=== PATIENT | female | born 1930 | race Caucasian/White ===

== ENCOUNTER 2017-06-01 09:21 | Emergency (ER) | payer MEDICARE ==
[2017-06-01] MEDS ORDERED: NS 0.9% 1000 ML* 1,000 ML IV ONE (09:26)
--- NOTE | 2017-06-01 09:47 | RAD ---
INDICATION: Change in neuro status. Code lindquist. COMPARISON: None TECHNIQUE: Noncontrast axial source images were acquired from the skull base to the vertex. FINDINGS: Ventricles/sulci: There is mild age-related cortical atrophy with compensatory dilatation of the CSF spaces. Brain parenchyma: There is periventricular and subcortical white matter change compatible with chronic ischemia. Intracranial hemorrhage:None. Extra-axial spaces: There are no abnormal extra axial fluid collections or evidence of extra-axial mass. Calvarium: There is no calvarial fracture or other calvarial abnormality. Scalp: There is no evidence of scalp or extracalvarial soft tissue abnormality. Paranasal sinuses/mastoid: The paranasal sinuses and mastoid air cells are clear. Other: None. IMPRESSION: CORTICAL ATROPHY WITH CHRONIC MICROVASCULAR ISCHEMIC CHANGES. POSSIBLE DENSE RIGHT MCA SIGN. NO EVIDENCE OF INTRACRANIAL HEMORRHAGE. Findings called to ED at 0940 hours
[2017-06-01] MEDS ORDERED: Aspirin SUPP* 300 MG PR ONE (09:56)
[2017-06-01 10:02] LABS: Hematocrit 41 % (35-47); Hemoglobin 13.5 g/dl (12.0-16.0); Mean Corpuscular HGB Conc 33 g/dl (31-36); Mean Corpuscular Hemoglobin 29 pg (27-31); Mean Corpuscular Volume 87 fL (80-97); Mean Platelet Volume 9 um3 (7.4-10.4); Red Blood Count 4.73 10^6/ul (4.0-5.4); Red Cell Distribution Width 14 % (10.5-15); White Blood Count 8.8 10^3/ul (3.5-10.8)
[2017-06-01 10:15] LABS: Albumin 3.9 g/dL (3.2-5.2); BUN/Creatinine Ratio 16.7 (8-20); Calcium 9.3 mg/dL (8.6-10.3); EGFR African American 76.5 (>60); EGFR Non-African American 59.5 (>60); Globulin 3.1 g/dL (2-4); HDL Cholesterol 52.6 mg/dL; Potassium 3.8 mmol/L (3.5-5.0); Total Bilirubin 0.8 mg/dL (0.2-1.0)
[2017-06-01 10:16] LABS: Troponin I 0.03 ng/mL (<0.04)
[2017-06-01] MEDS ORDERED: Iodixanol* (CONTRAST) 320 MG/ML 100 ML SDV IV ONE (10:17)
--- NOTE | 2017-06-01 10:18 | RAD ---
Indication: Neurologic changes, coronal lindquist. Single frontal view of the chest performed at 0956 hours was reviewed. Comparison is made with previous exam dated 12/28/2004 and 01/06/2005, August 08, 2006. Cardiomegaly is noted. Tortuous aorta is noted. Left lung field is clear. The right lung field is obscured due to enlarged heart. IMPRESSION: LIMITED CHEST X-RAY. LEFT LUNG FIELD IS CLEAR. RIGHT LUNG FIELD IS NOT WELL EVALUATED. THE STUDY IS EXTREMELY ROTATED TO THE RIGHT
[2017-06-01] MEDS ORDERED: Ondansetron INJ* 2 MG/ML VIAL IV ONE (10:22)
--- NOTE | 2017-06-01 11:15 | RAD ---
INDICATION: Dense left hemiparesis. COMPARISON: Comparison is made with a prior CT of the brain of the same date. TECHNIQUE: A CT angiogram of the head and neck was performed following intravenous injection of 80 ml of Visipaque 320 nonionic contrast. Contiguous axial sections were obtained from the thoracic inlet through the skull vertex. Images were reconstructed in the coronal and sagittal planes and in a 3-D volume rendered format. The distal cervical internal carotid artery diameter is used as the denominator for stenosis measurement. FINDINGS: RIGHT CAROTID: The right common carotid artery appears patent. There appears to be complete occlusion of the internal carotid artery at the carotid bifurcation. The remaining extracranial internal carotid artery as well as the intracranial portion of the internal carotid artery appears occluded with the exception of faint contrast within the cavernous and supraclinoid portion of the internal carotid artery which likely represents cross flow across the [place] of [place]. LEFT CAROTID: The left common carotid artery appears widely patent. There is mild to moderate soft and calcific plaque present at the carotid bifurcation and proximal internal carotid artery giving rise to a mild less than 50% stenosis. The remaining internal carotid artery appears widely patent. VERTEBRALS: The vertebral arteries appear patent. CTA BRAIN: The anterior and middle cerebral arteries appear patent bilaterally. There is mild asymmetry with slightly decreased flow present on the right side. The vertebral and basilar arteries appear patent. There is a small right posterior cerebral artery arising from the basilar artery. The majority of the flow to the right posterior cerebral artery appears to arise from the posterior communicating artery which is decreased due to the patient's carotid artery occlusion. No aneurysm or vascular malformation is seen. NECK: No significant enlarged lymph nodes are seen within the neck. The thyroid, parotid and submandibular glands appear to be within normal limits. The lung apices appear clear. The sinuses are clear. The results of this exam were discussed with the referring clinician. IMPRESSION: THERE IS OCCLUSION OF THE RIGHT INTERNAL CAROTID ARTERY BEGINNING AT THE CAROTID BIFURCATION AND EXTENDING THROUGH THE MAJORITY OF THE INTRACRANIAL PORTION OF THE INTERNAL CAROTID ARTERY DESCRIBED. THERE IS DECREASED FLOW WITHIN THE RIGHT ANTERIOR AND MIDDLE CEREBRAL ARTERIES RELATIVE TO THE LEFT SIDE. IN ADDITION THE MAJORITY OF THE FLOW TO THE RIGHT POSTERIOR CEREBRAL ARTERY APPEARS TO ARISE FROM THE POSTERIOR COMMUNICATING ARTERY AND THERE IS DECREASED FLOW WITHIN THE RIGHT POSTERIOR CEREBRAL ARTERY. CPT II Codes: 3100F
[2017-06-01 11:52] LABS: Urine Bilirubin Negative (Negative); Urine Glucose Negative (Negative); Urine Nitrite Negative (Negative)
--- NOTE | 2017-06-01 11:54 | ED ---
Arielle Turner Alfonso, scribed for Juli Rothman MD on 06/01/17 at 0928 . Neurological HPI - HPI Summary HPI Summary: Josie hayes called at 0923. This patient is an 86 year old F BIBA to [facility] with a chief complaint of left- sided weakness noticed at waking up at approximately 0530. This morning she woke up and fell reaching for a tissue. Pt was unable to describe if she had weakness or facial droop when she awoke at 05:30am. She had a phone conversation at 0700 with a family member where she seemed normal. She made breakfast and stove top coffee this morning. Pt was able to walk and fell striking her head. She went back to bed and when she awoke she had worsening weakness. Last known well time is unknown. Symptoms aggravated by nothing, Symptoms alleviated by nothing. EMS reports right-sided gaze. Patient reports frontal headache. She denies PMHx of CVA. PMHx includes HTN, A-Fib, and colon cancer. - History of Current Complaint Stated Complaint: POSS STROKE Hx Obtained From: Patient, Family/Service Center Appraiser, EMS Onset/Duration: Sudden Onset, Started hours ago - Unknown LKW, Still Present Timing: Constant Onset Severity: Severe Current Severity: Severe Neurological Deficit Location: LUE, LLE Headache Location: Diffuse (Right), Diffuse (Left) Pain Intensity: 1 Pain Scale Used: 0-10 Numeric Character: Unable To Describe Aggravating: Nothing Alleviating: Nothing Associated Signs and Symptoms: Positive: Headache, Weakness TPA Considered: Yes - Pt outside window, and no LKW Related Hx: ASA - Allergy/Home Medications Allergies/Adverse Reactions: Allergies Allergy/AdvReac Type Severity Reaction Status Date / Time Amoxicillin Allergy Unknown Unknown Verified 02/15/13 13:59 Reaction Details Caffeine Allergy Unknown Unknown Verified 02/15/13 13:59 Reaction Details Procaine [From Novocain] Allergy Unknown Unknown Verified 02/15/13 13:58 Reaction Details Sulfa Antibiotics Allergy Unknown Unknown Verified 02/15/13 13:57 Reaction Details Home Medications: Home Medications Albuterol inh POWDER (NF) [Proair Respiclick] 2 puff INH Q6HR PRN 06/01/17 [ History Confirmed 06/01/17] Aspirin EC Low Dose* [Ecotrin EC Low Dose 81 MG*] 81 mg PO DAILY 06/01/17 [ History Confirmed 06/01/17] Atenolol TAB* [Tenormin TAB* 50 MG] 50 mg PO DAILY 06/01/17 [History Confirmed 06/01/17] Levothyroxine TAB* [Synthroid TAB*] 112 mcg PO DAILY 06/01/17 [History Confirmed 06/01/17] LoraTADine TAB(NF) [Claritin 10 MG TAB(NF)] 10 mg PO DAILY PRN 06/01/17 [ History Confirmed 06/01/17] Triamterene/HCTZ 37.5-25 MG* [Dyazide CAP*] 1 cap PO DAILY 06/01/17 [History Confirmed 06/01/17] PMH/Surg Hx/FS Hx/Imm Hx Endocrine/Hematology History: Reports: Hx Thyroid Disease Cardiovascular History: Reports: Hx Atrial Fibrillation, Hx Hypertension Neurological History: Denies: Hx CVA - Cancer History Cancer Type, Location and Year: colon cancer with surgery and chemo 2004 - Surgical History Surgery Procedure, Year, and Place: hernia, colon Infectious Disease History: Denies: Hx Clostridium Difficile, Hx Hepatitis, Hx Human Immunodeficiency Virus (HIV), Hx of Known/Suspected MRSA, Hx Shingles, Hx Tuberculosis, Hx Known/ Suspected VRE, Hx Known/Suspected VRSA, History Other Infectious Disease - Family History Known Family History: Positive: Hypertension - Social History Lives: With Family Alcohol Use: None Substance Use Type: Reports: None Hx Tobacco Use: No Smoking Status (MU): Never Smoked Tobacco Review of Systems Constitutional: Negative Positive: Other - right-sided gaze ENT: Negative Cardiovascular: Negative Respiratory: Negative Gastrointestinal: Negative Musculoskeletal: Negative Positive: Headache, Weakness All Other Systems Reviewed And Are Negative: Yes Physical Exam Triage Information Reviewed: Yes Vital Signs On Initial Exam: Initial Vitals Pulse Pulse Ox 70 92 06/01/17 09:37 06/01/17 09:37 Vital Signs Reviewed: Yes Appearance: Positive: No Pain Distress, Ill-Appearing, Obese Skin: Positive: Warm, Skin Color Reflects Adequate Perfusion Head/Face: Positive: Other - bruising left forehead, left facial droop Eyes: Positive: Conjunctiva Clear, Other: - Right deviation gaze ENT: Positive: Normal ENT inspection, Hearing grossly normal. Negative: Muffled /hoarse voice Neck: Positive: Supple, Nontender Respiratory/Lung Sounds: Positive: Clear to Auscultation, Breath Sounds Present , Other - No respiratory distress Cardiovascular: Positive: Pulses are Symmetrical in both Upper and Lower Extremities, IRR, Other - brisk capillary refill. Negative: Murmur Abdomen Description: Positive: Nontender, No Organomegaly, Soft. Negative: Distended, Guarding, McBurney's Point Tenderness, Peritoneal Signs, Pulsatile Mass Bowel Sounds: Positive: Present Musculoskeletal: Positive: Abnormal @ - LUE, LLE Neurological: Positive: Facial Droop - left, Other - See NIH stroke scale. Psychiatric: Positive: Normal Diagnostics - Vital Signs Vital Signs Temp Pulse Resp BP Pulse Ox 06/01/17 10:00 69 15 163/123 95 06/01/17 09:48 97.9 F 70 20 186/99 95 06/01/17 09:46 98.3 F 74 20 186/99 96 06/01/17 09:42 74 14 186/99 93 06/01/17 09:37 70 92 - Laboratory Lab Results: Lab Results 06/01/17 06/01/17 06/01/17 Range/Units 09:39 09:39 09:39 WBC 8.8 (3.5-10.8) 10^3/ul RBC 4.73 (4.0-5.4) 10^6/ul Hgb 13.5 (12.0-16.0) g/dl Hct 41 (35-47) % MCV 87 (80-97) fL MCH 29 (27-31) pg MCHC 33 (31-36) g/dl RDW 14 (10.5-15) % Plt Count 201 (150-450) 10^3/ul MPV 9 (7.4-10.4) um3 Neut % (Auto) 70.2 (38-83) % Lymph % (Auto) 19.2 L (25-47) % [place] % (Auto) 9.4 H (1-9) % Eos % (Auto) 0.8 (0-6) % Baso % (Auto) 0.4 (0-2) % Absolute Neuts (auto) 6.2 (1.5-7.7) 10^3/ul Absolute Lymphs (auto) 1.7 (1.0-4.8) 10^3/ul Absolute Monos (auto) 0.8 (0-0.8) 10^3/ul Absolute Eos (auto) 0.1 (0-0.6) 10^3/ul Absolute Basos (auto) 0 (0-0.2) 10^3/ul Absolute Nucleated RBC 0.01 10^3/ul Nucleated RBC % 0.1 INR (Anticoag Therapy) 0.94 (0.89-1.11) APTT 30.7 (26.0-36.3) seconds Sodium 136 (133-145) mmol/L Potassium 3.8 (3.5-5.0) mmol/L Chloride 104 (101-111) mmol/L Carbon Dioxide 23 (22-32) mmol/L Anion Gap 9 (2-11) mmol/L BUN 15 (6-24) mg/dL Creatinine 0.90 (0.51-0.95) mg/dL Est GFR ( Amer) 76.5 (>60) Est GFR (Non-Af Amer) 59.5 (>60) BUN/Creatinine Ratio 16.7 (8-20) Glucose 138 H (70-100) mg/dL POC Glucose (mg/dL) (70-100) mg/dL Lactic Acid (0.5-2.0) mmol/L Calcium 9.3 (8.6-10.3) mg/dL Total Bilirubin 0.80 (0.2-1.0) mg/dL AST 21 (13-39) U/L ALT 12 (7-52) U/L Alkaline Phosphatase 76 (34-104) U/L Troponin I 0.03 (<0.04) ng/mL Total Protein 7.0 (6.4-8.9) g/dL Albumin 3.9 (3.2-5.2) g/dL Globulin 3.1 (2-4) g/dL Albumin/Globulin Ratio 1.3 (1-3) Triglycerides 104 mg/dL Cholesterol 197 mg/dL LDL Cholesterol 124 mg/dL HDL Cholesterol 52.6 mg/dL Blood Type Antibody Screen 06/01/17 06/01/17 06/01/17 Range/Units 09:39 09:39 09:49 WBC (3.5-10.8) 10^3/ul RBC (4.0-5.4) 10^6/ul Hgb (12.0-16.0) g/dl Hct (35-47) % MCV (80-97) fL MCH (27-31) pg MCHC (31-36) g/dl RDW (10.5-15) % Plt Count (150-450) 10^3/ul MPV (7.4-10.4) um3 Neut % (Auto) (38-83) % Lymph % (Auto) (25-47) % [place] % (Auto) (1-9) % Eos % (Auto) (0-6) % Baso % (Auto) (0-2) % Absolute Neuts (auto) (1.5-7.7) 10^3/ul Absolute Lymphs (auto) (1.0-4.8) 10^3/ul Absolute Monos (auto) (0-0.8) 10^3/ul Absolute Eos (auto) (0-0.6) 10^3/ul Absolute Basos (auto) (0-0.2) 10^3/ul Absolute Nucleated RBC 10^3/ul Nucleated RBC % INR (Anticoag Therapy) (0.89-1.11) APTT (26.0-36.3) seconds Sodium (133-145) mmol/L Potassium (3.5-5.0) mmol/L Chloride (101-111) mmol/L Carbon Dioxide (22-32) mmol/L Anion Gap (2-11) mmol/L BUN (6-24) mg/dL Creatinine (0.51-0.95) mg/dL Est GFR ( Amer) (>60) Est GFR (Non-Af Amer) (>60) BUN/Creatinine Ratio (8-20) Glucose (70-100) mg/dL POC Glucose (mg/dL) 141 H (70-100) mg/dL Lactic Acid 2.6 H* (0.5-2.0) mmol/L Calcium (8.6-10.3) mg/dL Total Bilirubin (0.2-1.0) mg/dL AST (13-39) U/L ALT (7-52) U/L Alkaline Phosphatase (34-104) U/L Troponin I (<0.04) ng/mL Total Protein (6.4-8.9) g/dL Albumin (3.2-5.2) g/dL Globulin (2-4) g/dL Albumin/Globulin Ratio (1-3) Triglycerides mg/dL Cholesterol mg/dL LDL Cholesterol mg/dL HDL Cholesterol mg/dL Blood Type A Positive Antibody Screen Negative Result Diagrams: 06/01/17 09:39 06/01/17 09:39 Lab Statement: Any lab studies that have been ordered have been reviewed, and results considered in the medical decision making process. - Radiology CXR Radiology Interpretation Completed By: Radiologist - LIMITED CHEST X-RAY. LEFT LUNG FIELD IS CLEAR. RIGHT LUNG FIELD IS NOT WELL EVALUATED. THE STUDY IS EXTREMELY ROTATED TO THE RIGHT. ED physician has reviewed this radiology report and agrees. - CT Brain CT Interpretation Completed By: Radiologist - CORTICAL ATROPHY WITH CHRONIC MICROVASCULAR ISCHEMIC CHANGES. POSSIBLE DENSE RIGHT MCA SIGN. NO EVIDENCE OF INTRACRANIAL HEMORRHAGE. Findings called to ED at 0940 hours. ED physician has reviewed this radiology report and agrees. CTA HEAD CT Interpretation Completed By: Radiologist - THERE IS OCCLUSION OF THE RIGHT INTERNAL CAROTID ARTERY BEGINNING AT THE CAROTID BIFURCATION AND EXTENDING THROUGH THE MAJORITY OF THE INTRACRANIAL PORTION OF THE INTERNAL CAROTID ARTERY DESCRIBED. THERE IS DECREASED FLOW WITHIN THE RIGHT ANTERIOR AND MIDDLE CEREBRAL ARTERIES RELATIVE TO THE LEFT SIDE. IN ADDITION THE MAJORITY OF THE FLOW TO THE RIGHT POSTERIOR CEREBRAL ARTERY APPEARS TO ARISE FROM THE POSTERIOR COMMUNICATING ARTERY AND THERE IS DECREASED FLOW WITHIN THE RIGHT POSTERIOR CEREBRAL ARTERY. ED physician has reviewed this radiology report and agrees. - EKG 0934 Cardiac Rate: NL - BPM 0934 EKG Rhythm: Atrial Fibrillation EKG Interpretation: -4 QRS. QTc 403. NIH Scale - NIH Scale Level of Consciousness: Alert/Keenly Responsive Ask Patient the Month and His/Her Age: One Correct/Not Aphasic Ask Pt to Open/Close Eyes and J2Ee Programmer/Release Non-Paretic Hand: One Correctly Best Gaze (Only Horizontal Eye Movement): Partial Gaze Palsy Visual Field Testing: No Visual Loss Facial Paresis-Pt to Smile & Close Eyes or Grimace Symmetry: Partial Paralysis Motor Function - Right Arm: No Drift-Holds 10 Seconds Motor Function - Left Arm: No Effort Against Ryde Motor Function - Right Leg: No Drift-Holds 10 Seconds Motor Function - Left Leg: No Effort Against [place] Limb Ataxia-Must be out of Proportion to Weakness Present: Absent Sensory (Use Pinprick to Test Arms/Legs/Trunk/Face): Severe to Total Loss Best Language (Describe Picture, Name Items): Some Loss Dysarthria (Read Several Words): Slurs Some Words Extinction and Inattention: Inattention Total Score: 16 Re-Evaluation - Re-Evaluation First Eval Re-Evaluation Time: 10:30 Comment: Reviewed results and patient's case with son. Extensive converstation with Dr. Cox, Dr. Rothman, and family regarding TPA criteria, that pt does not qualify for TPA, and reasons for CTA head and neck. Second Eval Re-Evaluation Time: 11:39 Comment: Patient remains taking. Bed is flat. No neurological changes noted. Disposition is transfer by helicopter to [facility]. Course/Dx - Course Assessment/Plan: Josie hayes called at 0923. This patient is an 86 year old F BIBA to [facility] with a chief complaint of left-sided weakness noticed at waking up at approximately 0530. This morning she woke up and fell reaching for a tissue. Pt was unable to describe if she had weakness or facial droop when she awoke at 05:30am. She had a phone conversation at 0700 with a family member where she seemed normal. She made breakfast and stove top coffee this morning. Pt was able to walk and fell striking her head. She went back to bed and when she awoke she had worsening weakness. Last known well time is unknown. Symptoms aggravated by nothing, Symptoms alleviated by nothing. EMS reports right-sided gaze. Patient reports frontal headache. She denies PMHx of CVA. PMHx includes HTN, A-Fib, and colon cancer. An EKG reveals A-Fib. CXR reveals LIMITED CHEST X-RAY. LEFT LUNG FIELD IS CLEAR. RIGHT LUNG FIELD IS NOT WELL EVALUATED. THE STUDY IS EXTREMELY ROTATED TO THE RIGHT. ED physician has reviewed this radiology report and agrees. CT brain reveals CORTICAL ATROPHY WITH CHRONIC MICROVASCULAR ISCHEMIC CHANGES. POSSIBLE DENSE RIGHT MCA SIGN. NO EVIDENCE OF INTRACRANIAL HEMORRHAGE. Findings called to ED at 0940 hours. ED physician has reviewed this radiology report and agrees. CTA Head reveals THERE IS OCCLUSION OF THE RIGHT INTERNAL CAROTID ARTERY BEGINNING AT THE CAROTID BIFURCATION AND EXTENDING THROUGH THE MAJORITY OF THE INTRACRANIAL PORTION OF THE. INTERNAL CAROTID ARTERY DESCRIBED. THERE IS DECREASED FLOW WITHIN THE RIGHT ANTERIOR. AND MIDDLE CEREBRAL ARTERIES RELATIVE TO THE LEFT SIDE. IN ADDITION THE MAJORITY OF THE. FLOW TO THE RIGHT POSTERIOR CEREBRAL ARTERY APPEARS TO ARISE FROM THE POSTERIOR. COMMUNICATING ARTERY AND THERE IS DECREASED FLOW WITHIN THE RIGHT POSTERIOR CEREBRAL. ARTERY. Dr. Cox ( neurologist) consulted at 0943 who will see the patient in the ED. Consulted Dr. Gómez (neurologist) at [place] who agrees to accept the transfer. Patient will be transferred to [place] with follow up from Dr. Gómez. Pt will be evaluated for clot retrieval - Differential Dx Differential Diagnoses Neuro: Positive: Cerebrovascular Accident, Headache, Intracranial Bleed - Diagnoses Provider Diagnoses: Acute right MCA stroke, Internal carotid artery occlusion During the Visit The Following Alert/Code Occurred: Code Hayes - Code hayes called at 0923. - Physician Notifications Discussed Care Of Patient With: Tyree Cox Time Discussed With Above Provider: 09:43 Instructed by Provider To: Other - Dr. Cox (neurologist) consulted at 0943 who will see the patient in the ED. Consulted Dr. Gómez (neurologist) at [place] who agrees to accept the transfer for higher level of care. - Critical Care Time Critical Care Time: 30-74 min - 30 minutes Discharge - Discharge Plan Condition: Critical Disposition: TRANS HIGHER LVL OF CARE FAC Referrals: Aftab Farmer MD [Primary Care Provider] - The documentation as recorded by the Arielle arreola Alfonso accurately reflects the service I personally performed and the decisions made by , Juli Rothman MD.
[2017-06-01 11:59] VITALS: BP 165/87
--- NOTE | 2017-06-01 12:04 | CONS ---
CONSULTATION REPORT: DATE OF CONSULT: 06/01/17 PATIENT OF: Dr. Rothman. HISTORY: This is an 86-year-old woman who is presenting with stroke. DICTATION ENDS ABRUPTLY. [id number]/[facility] #: [id number] MTDD
--- NOTE | 2017-06-01 12:45 | CONS ---
CONSULTATION REPORT: DATE OF CONSULT/DICTATION: 06/01/17 - EMERGENCY DEPT PATIENT OF: Dr. Rothman. HISTORY: This is an 86-year-old right-handed woman who I am asked to evaluate for stroke. I was contacted at roughly 9:45 and saw her within 5 minutes of being contacted initially. At that point, she had said that she had waked normally during the night when she woke up to go to the bathroom but that at roughly 5:30, when she was still in bed and reached for her Kleenex, she knocked it off the bed and then fell out of bed and needed to be helped up by one of her sons, who lives in the same house. At that point, she said that she did not get out of bed afterwards and we thought that this could have been a that occurred even in her sleep but in any event was at least 4-1/2 hours long. The story changed somewhat and she was clearly outside of the TPA window. When her other sons came to the ER, we got a slightly different history , which was she was able to, somewhere between 5:30 and 7:30 or so, get up out of bed, walk down stairs, make coffee and began preparing breakfast. At 8 o' clock, the son came in, found her weak on the left side, helped her back to bed and called the other sons, who also found her weak and was brought in by ambulance. By this history, it seems there may have been a deficit somewhere between 5:30 and earlier, but that she was quite functional in terms of walking and handling objects up until at least 7:30 or 8. She has had no prior strokes. She has hypothyroidism, but is in otherwise in good health and she has no known atrial fib prior to today. There has been no recent surgeries. This is partly through the son and partly through her, although she is somewhat inattentive, so history is not perfect. MEDICATIONS: Other medicines may be pseudoephedrine and Colace 100 mg daily. The levothyroxine is 100 mcg daily. It is thought she may be on aspirin at home , but she is on no stronger blood thinners. ALLERGIES: She is allergic to AMOXICILLIN, CAFFEINE, PROCAINE, and SULFA ANTIBIOTICS. FAMILY HISTORY: There is no clear family history of stroke per patient. SOCIAL HISTORY: She does not smoke, drink, or use drugs. REVIEW OF SYSTEMS: Negative in all 14 spheres. The best I can tell is there has been no recent illnesses. She did complain of a significant bifrontal and global headache ever since she woke this morning. She denies any visual problems. PHYSICAL EXAM: On exam, temperature 97.9, pulse 70, respirations 15, blood pressure 163/123. She is alert and oriented x3. Speech and comprehension were intact and she can follow 3-step commands, but she is inattentive. She knows she has had a stroke but is not particularly worried about it. Cranial nerves II through XII show deficits as following: She has a dense left field cut in both eyes. She has a left facial palsy and she has a right gaze preference. Rest of cranial nerves II through XII are intact. Motor exam revealed normal tone and strength on the right. She can wiggle her toes and move her leg slightly but not against gravity. She is densely plegic in the left arm with 0/ 5 strength. Sensation was absent on the left arm, face, and leg. Toe was equivocal on the left, downgoing on the right. Chest: Clear. Cardiovascular: Irregular rate and rhythm without murmur. Abdomen: Soft with positive bowel sounds. DIAGNOSTIC STUDIES/LAB DATA: CT scan was reported as cortical atrophy with chronic microvascular changes and a possible dense right MCA sign to my eye. Not only were there some hyperlucencies possibly secondary to microvascular changes, but there seemed to be some effacement of cortical sulci. Her CTA showed per verbal report through Dr. Willams at this point, carotid occlusion on the right beginning at the bifurcation with decreased flow through the MCA and [place] on that side but without any clear-cut clot. Her SENIOR JAVA PROGRAMMER had to take off from her carotid rather than her posterior circulation. Labs included normal CBC, normal INR and PTT. Normal CMP. Of note, we did the CTA before the BUN and creatinine were back. Her lactic acid is 2.6, LDL was 123. I have spoken to Dr. Gómez twice about her case with the following discussion. First of all, the analysis of the case is I think she may have had a partial stroke, either as a wake-up stroke or shortly after waking up at 5: 30. Time of onset of this is not clear, she clearly was not a TPA candidate. However, since her majority of her stroke most likely occurred some time after 5 :30 but by 7:30 or 8, [facility] feels they may be able to intervene and restore flow since it is a carotid occlusion, primarily they are not 100% sure. This is the case but they want her up there to analyze and figure out whether there is a procedure that can be done to restore flow. I discussed this in detail with Dr. Gómez and then with the family a few times and she understands and is agreeable with this plan as is the family who I have spoken to in detail. Helicopter has been contacted and is on its way. She has got a rectal aspirin at this point. Thank you for sharing her case. [id number]/[facility] #: [id number] RESHMA
== END 2017-06-01 11:59 | disposition short-term general hospital (02) ==
LOC: ED 09:21
DX: I63.412 Cerebral infarction due to embolism of left middle cerebral artery (principal); R51 Headache; R53.1 Weakness; I65.29 Occlusion and stenosis of unspecified carotid artery; Z86.79 Personal history of other diseases of the circulatory system; Z85.038 Personal history of other malignant neoplasm of large intestine
CPT/HCPCS: 36415; 70450; 70496; 70498; 71010; 80053; 80061; 81003; 83605; 84484; 85025; 85610; 85730; 86850; 86900; 86901; 93005; 96374; 99285; A9270-GY; J2405; Q9967